=== PATIENT | female | born 1955 | race Caucasian/White ===

== ENCOUNTER 2017-03-14 08:40 | Day surgery (SDC) | payer OTHER ==
[~2017-03-14] VITALS: Ht 149.9 cm; Wt 98.4 kg
--- NOTE | 2017-03-14 10:23 | NUR ---
03/14/17 Elieser3 Venita Evans 1020-PATIENT ARRIVED TO PACU ON 2L NC O2 SAT 98% PATIENT AWAKE DENIES PAIN OR NAUSEA. ABDOMEN ROUND SOFT, ENCOURAGED TO PASS FLATUS.
--- NOTE | 2017-03-14 11:25 | NUR ---
returned to room 9 waiting for ride. wants to sleep for awhile. lights off door closed.
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
--- NOTE | 2017-03-14 13:07 | NUR ---
1300-PATIENT ATE SOUP AND DRANK JUICE. DENIES PAIN OR NAUSEA. IV REMOVED TIP INTACT. PATIENT GETTING DRESSED. PATIENT SET UP THROUGH TOWEL STRETCHER SERVICES FOR NIGHT AT HOTEL, CAR RIDE TO BE AT 1500, PATIENT TO BE GIVEN SACK LUNCH FOR DINNER. CAR RIDE FOR TOMORROW AM FOR PATIENT TO RETRIEVE CAR. PATIENT TO LEAVE CAR KEYS WITH STAFF. SANDWICH ORDERED FOR PATIENT. DISCHARGE READY.
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
--- NOTE | 2017-03-14 15:44 | NUR ---
1440walked pt to car to gather belonging. turned keys into switchboard for placement in safe. pt has receipt. box sandwich given to pt. care ride called to take pt to [facility] to spend night as not to drive after sedation for scope. pt left in taxi at approx 1530.
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
== END 2017-03-14 11:20 | disposition home or self-care (01) ==
LOC: OPS 08:40 → DS 08:40 → OPS 09:45
PROVIDERS: Colon & Rectal Surgery
PROC: 0DJD8ZZ Inspection of Lower Intestinal Tract, Via Natural or Artificial Opening Endoscopic (ICD-10-PCS; principal; 2017-03-14 09:45)
DX: K57.30 Diverticulosis of large intestine without perforation or abscess without bleeding (principal); K64.8 Other hemorrhoids; K64.4 Residual hemorrhoidal skin tags; E66.9 Obesity, unspecified; I10 Essential (primary) hypertension; E11.9 Type 2 diabetes mellitus without complications; Z90.89 Acquired absence of other organs; Z68.41 Body mass index [BMI] 40.0-44.9, adult; Z90.49 Acquired absence of other specified parts of digestive tract
CPT/HCPCS: 99152; 99153; J2250; J3010; J7120

== ENCOUNTER 2024-11-11 08:28 | Day surgery (SDC) | payer MEDICARE ==
--- NOTE | 2024-11-04 13:55 | NUR ---
PHONE CALL TO NUMBER [phone] NO ANSWER LEFT MESSAGE.
[~2024-11-11] VITALS: Ht 157.5 cm; Wt 109.1 kg
[~2024-11-11 08:28] MED LIST: HYDROCHLOROTHIA25 MG PO; IBLOOD GLUCOSE TEST STRIP 1 EA TEST VI PRN; LACTATED RINGER'S 1,000 ML IV SCH; LIDOCAINE HCL 1% 5 ML SDV INJ ONE; LOSARTAN POTASS25 MG PO; ROGAINE60 ML
[2024-11-11 09:01] VITALS: BP 158/104
[2024-11-11] MEDS ORDERED: MINOXIDIL2.5 MG PO (09:01)
[2024-11-11] MEDS ORDERED: propofoL 200 MG/20 ML VIAL ONE ×2 (09:36)
[2024-11-11] MEDS ORDERED: LIDOCAINE HCL 2% 5 ML SDV ONE (09:36)
--- NOTE | 2024-11-11 13:06 | NUR ---
1300-PT IN ROOM 11 WAITING FOR TRANSPORTATION. NO OTHER NEEDS AT THIS TIME. CALL LIGHT WITHIN REACH.
[2024-11-11 13:11] VITALS: BP 135/85
[2024-11-11 13:15] VITALS: BP 146/85
--- NOTE | 2024-11-11 14:03 | NUR ---
PT LAYING IN BED WATCHING TV. NO OTHER NEEDS AT THIS TIME. CALL LIGHT WITHIN REACH.
--- NOTE | 2024-11-11 14:04 | NUR ---
11/11/24 1404 Adrienne Blunt Kameron 1014- PT PRESENTS TO PACU, LEFT LATERAL POSITION, O2 AT 6L PER MASK, BREATHING EVEN AND NON LABORED. LR INFUSING TO RAC IV, ABD SOFT, NON DISTENDED. ENCOURAGED TO PASS GAS. PT DROWSY, REORIENTED TO TIME AND PLACE. ALL MONITORS IN PLACE. 1018- PT MOVED TO ROOM AIR, PT C/O NASAL CONGESTION. 1021- PT ROLLED TO BACK ON OWN, SAT UP IN BED. 1023- PT GIVEN ICE WATER TOLERATING WELL. 1035- PT UP TO BATHROOM, AMBULATED WITH SLOW LIMPING GAIT FROM KNEE PAIN. 1050- PT AMBULATED BACK TO BED, VERBALIZED UNDERSTANDING OF INSTRUCTIONS. SALINE LOCK REMOVED, TIP INTACT, DRESSING APPLIED. PT RIDE CALLED AND HE REPORTS 10 MINUTES AWAY. PT TO GET DRESSED. 1100- PT TRANSFERRED TO WHEELCHAIR WITH STEADY GAIT. PT LEAVES WITH ALL BELONGINGS. WHILE TAKING PT TO THE FRONT OF HOSPITAL, PT REPORTS HER RIDE ISN'T HERE AND SHE IS HUNGRY NOW. DECLINES THE OPTION TO MEET UP WITH RIDE AND HAVE HIM TAKE HER TO GET LUNCH. PT TAKEN TO [place] IN WHEELCHAIR. WHILE WAITING FOR PT, SHE REPORTS THAT SHE WANTS TO EAT DOWNSTAIRS AND DOESN'T NEED ME. I ASKED THE PT IF WE SHOULD CONTACT HER RIDE THAT WOULD BE THERE IN A FEW MINUTES AND LET HIM KNOW THAT SHE IS IN THE [place] AND PT STATES "NO WE ARE TEXTING". 1115- WENT OUT FRONT OF HOSPITAL TO SEE IF RIDE HAS SHOWN UP TO PICK THE PT UP. AT THIS TIME, THERE IS NO ONE IN THE FRONT WAITING. ATTEMPTED TO CALL THE RIDE WITH NO ANSWER. CALLED PROGRAMMER NUMERICAL CONTROL TO HAVE SECURITY SIT WITH PT UNTIL RIDE COMES FOR PT. 1145- SECURITY CONTINUES TO SIT WITH PT. PT IS NOW ASKING FOR A BUS SCHEDULE. DISCUSSED WITH BRENDA CHAPIN, SOLEDAD MENON, KHARI SCIENTIFIC SOFTWARE ENGINEER AND DIMAS NURSE MEDIA INTERN. WIL BRODERICK CONTACTED FOR FURTHER INFORMATION AND BEST WAY TO PROCEED AND FOLLOW POLICY. 1200- PT BROUGHT BACK TO DAY SURGERY. PT REPORTS SHE DROVE FROM HER HOUSE TO THE BUS STOP. PLAN AT THIS TIME IS TO HOLD PT UNTIL 1800 FOR MEDICATIONS TO CLEAR AND SEND IN A TAXI TO HER HOME, UNLESS PT CAN FIND A DIFFERENT RIDE HOME IN THE MEAN TIME. REPORT TO SHRUTHI CHAPIN.
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
--- NOTE | 2024-11-11 16:28 | NUR ---
1620-PROVIDED PT WITH WATER. NO OTHER NEEDS AT THIS TIME.
--- NOTE | 2024-11-11 16:35 | NUR ---
CHARLES 1603: RECEIVED VERBAL ORDERS FROM WIL BRODERICK, DIRECTOR OF PATIENT, THAT WE ARE OK TO SEND THE PT TO [facility] TO CATCH THE [employer] BUS TO TAKE HER TO [place] AT HER REQUEST. CHARLES 1632: PT EDUCATED THAT WE WILL BE SENDING HER TO [facility] VIA TAXI TO CATCH THE BUS. SHE STATES THAT THE [employer] HAS A STOP AT THE HOSPITAL AT 1720 TODAY. PT WILL BE LEAVING ON THE 1720 BUS.
--- NOTE | 2024-11-11 17:30 | NUR ---
1720-PT GOT ON THE [employer].
== END 2024-11-11 11:00 | disposition home or self-care (01) ==
LOC: DS 08:28
PROVIDERS: ATTEND Colon & Rectal Surgery
PROC: 0DJD8ZZ Inspection of Lower Intestinal Tract, Via Natural or Artificial Opening Endoscopic (ICD-10-PCS; principal; 2024-11-11 10:00)
DX: K64.8 Other hemorrhoids (principal); K57.30 Diverticulosis of large intestine without perforation or abscess without bleeding; K64.4 Residual hemorrhoidal skin tags; E66.9 Obesity, unspecified; Z68.41 Body mass index [BMI] 40.0-44.9, adult
CPT/HCPCS: 00811; J2003; J2704; J7121